=== PATIENT | male | born 1965 | race Caucasian/White ===

== ENCOUNTER 2024-05-31 16:48 | Emergency (ER) | payer OTHER ==
[~2024-05-31] VITALS: Ht 182.9 cm; Wt 91.0 kg
[2024-05-31 16:57] VITALS: O2SAT 99
[2024-05-31 21:15] VITALS: BP 152/73; PULSE 73; RESP 16; TEMP 36.66960; O2SAT 97
== END 2024-05-31 21:16 | disposition home or self-care (01) ==
LOC: ER 16:48
DX: R10.9 Unspecified abdominal pain (principal); Z88.5 Allergy status to narcotic agent; Z88.0 Allergy status to penicillin
CPT/HCPCS: 93005; 99283